=== PATIENT | male | born 1990 ===

== ENCOUNTER 2024-01-22 08:05 | Emergency (ER) | payer OTHER, SELFPAY ==
--- NOTE | 2024-01-22 08:14 | ED.UPPEXIN ---
HPI - Extremity Injury (Upper) General Chief Complaint: Extremity Injury, Upper Stated Complaint: Left Shoulder Pain Time Seen by Provider: 01/22/24 08:14 Source: patient Mode of arrival: ambulatory Limitations: no limitations History of Present Illness HPI narrative: 33 yo M presents with c/o pain to L shoulder, upper back for 5 to 6 days. Denies injury. Has taken 1 tab ibuprofen a few times the last few days with no relief of pain. Pain worse yesterday. Began holding L arm up in arm over his head because he states it relieves pain. Also using his gun massager . today woke up and has tinglign to L arm. Normal ROM, distal NV intact. 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 All systems reviewed and negative except as noted above. Related Data Allergies Allergy/AdvReac Type Severity Reaction Status Date / Time No Known Allergies Allergy Verified 01/22/24 08:19 Review of Systems Review of Systems: CONSTITUTIONAL: Denies fever, chills, or sweats. EYES: Denies visual changes, redness, or discharge. ENT: Denies rhinorrhea, congestion, sore throat, or otalgia. CARDIOVASCULAR: Denies chest pain, palpitations, or edema. RESPIRATORY: Denies cough or dyspnea. GASTROINTESTINAL: Denies abdominal pain, nausea, vomiting, or diarrhea. GENITOURINARY: Denies dysuria or hematuria. SKIN: Denies rash or itching. MUSCULOSKELETAL: Denies back pain, joint pain, or myalgia. Reports left shoulder pain. NEUROLOGIC: Denies headache, numbness, or weakness. PSYCHIATRIC: Denies anxiety or depression. All other systems reviewed are negative, except as documented in HPI. PMFSH Comments At time of signature, agree with nursing past medical, surgical, social and family history. There is no relevant family history pertinent to the presenting complaint. Exam Narrative: GENERAL: This is a well-nourished, well-developed patient, in no apparent distress. HEAD: normocephalic, atraumatic. EYES: PERRL. Sclera clear/white. Vision is grossly intact. EARS: External ears normal NOSE: External nose normal Delete NECK: Neck supple, no midline tenderness. Tenderness to left trapezius muscle. No lymphadenopathy, masses or thyromegaly. CARDIOVASCULAR: Regular rate and rhythm without murmurs, gallops, or rubs. RESPIRATORY: Clear to auscultation. Breath sounds equal bilaterally. No wheezes, rales, or rhonchi. SKIN: warm, Dry, intact with no suspicious lesions or rash, good texture and turgor. NEURO: awake, alert, and oriented to person, place and time. There were no obvious focal neurologic abnormalities. EXTREMITIES: Muscular tenderness to left shoulder area. Normal range of motion to left shoulder. Left arm strength 5/5. Distal neurovascularly intact. BACK: No midline tenderness. Left upper back muscular tenderness exposure to left rhomboid area. Course Course Level of Care: Express Care Visit Vital Signs Vital signs: Vital Signs Temperature 36.6 C 01/22/24 08:18 Pulse Rate 102 H 01/22/24 08:18 Respiratory Rate 16 01/22/24 08:18 Blood Pressure 145/84 H 01/22/24 08:18 Pulse Oximetry 100 01/22/24 08:18 Temperature 36.6 C 01/22/24 08:20 Pulse Rate 102 H 01/22/24 08:20 Respiratory Rate 16 01/22/24 08:20 Blood Pressure 145/84 H 01/22/24 08:20 Pulse Oximetry 100 01/22/24 08:20 Reviewed MDM - Extremity Injury (Upper) MDM Narrative Medical decision making narrative: Treat patient for muscle strain. No neuro deficits on exam. Has normal range of motion to left shoulder. No injury. Imaging of left shoulder not indicated. Recommend follow with a PCP. Patient is aware of diagnosis, understands and agrees to treatment plan. Anticipatory guidance given. Patient agrees to follow-up as directed and is aware of reasons to seek care at the emergency department. Portions of this record may have been created with voice recognition software Discharge Plan Discharge Clinical Impression: Muscle
[2024-01-22 08:18] VITALS: BP 145/84; PULSE 102; RESP 16; TEMP 36.6; O2SAT 100
[2024-01-22 08:20] VITALS: BP 145/84; PULSE 102; RESP 16; TEMP 36.6; O2SAT 100
== END 2024-01-22 08:40 | disposition home or self-care (01) ==
PROVIDERS: Emergency Provider Nurse Practitioner Family
DX: S29.012A Strain of muscle and tendon of back wall of thorax, initial encounter (principal); S46.912A Strain of unspecified muscle, fascia and tendon at shoulder and upper arm level, left arm, initial encounter; X58.XXXA Exposure to other specified factors, initial encounter
CPT/HCPCS: 99203; G0463